=== PATIENT | male | born 1985 | race Caucasian/White ===

== ENCOUNTER 2021-06-04 00:31 | Emergency (ER) | payer MEDICAID, SELFPAY ==
[2021-06-04 00:44] VITALS: BP 136/90; PULSE 92; RESP 20; TEMP 36.9; O2SAT 95; BMI 26.6
[2021-06-04 01:15] LABS: MANUAL DIFF FLAG NO
[2021-06-04 01:21] LABS: Basophils Percent Auto 0.5 % (0-2); Eosinophils Absolute Auto 0.1 X10*3/uL (0.0-0.4); Hemoglobin 17.1 g/dl (14.0-18.0); Imm Gran Abs Auto 0.02 X10*3/uL (0.00-0.03); Imm Gran Pct Auto 0.3 % (0.0-0.4); Lymphocytes Absolute Auto 1.5 X10*3/uL (1.2-4.9); Lymphocytes Percent Auto 19.5 % (20-40); Mean Corpuscular HGB Conc 35.6 g/dl (31.0-36.0); Mean Corpuscular Hemoglobin 32.1 pg (27.0-33.0); Mean Corpuscular Volume 90.2 fL (80-98); Mean Platelet Volume 9.4 fL (9.4-12.4); Monocytes Absolute Auto 0.5 X10*3/uL (0.1-1.2); Monocytes Percent Auto 6.7 % (2-11); Neutrophils Absolute Auto 5.5 X10*3/uL (2.0-8.3); Platelet Count 323 X10*3/uL (160-400); Red Blood Count 5.32 X10*6/uL (4.60-5.80); Red Cell Distribution Width 12.6 % (11.0-16.0); White Blood Count 7.7 X10*3/uL (4.8-10.8)
[2021-06-04 01:22] LABS: Appearance Urine CLEAR; Color Urine STRAW; Glucose Urine UA NEG (NEG); Leukocyte Esterase Urine NEG (NEG); Nitrite Urine NEG (NEG); PH 5.5 (5.0-8.0); UACC Culture Trigger NO; Urine Blood 2+ (NEG); Urine Ketones NEG (NEG); Urine Protein NEG (NEG-TRACE)
[2021-06-04 01:29] LABS: Ethanol 200 mg/dL
[2021-06-04 01:30] LABS: Anion Gap 18 (12-20); Blood Urea Nitrogen 10 mg/dL (9-16); Calcium 9.4 mg/dL (8.4-10.2); Carbon Dioxide 19 mmol/L (22-29); Chloride 110 mmol/L (96-108); Estimated Glomerular Filt Rate > 60; Glucose Random 95 mg/dL (60-115); Potassium 4.1 mmol/L (3.3-5.1); Sodium 143 mmol/L (135-145)
[2021-06-04 01:31] LABS: Mucus Urine TRACE /LPF; RBC Urine 0 /HPF (0); Squamous Epithelial Cell Urine 1+ /LPF; WBC Urine 0 /HPF (0-4)
[2021-06-04 01:32] LABS: COVID-19 Test Negative (Negative)
[2021-06-04 01:38] LABS: Amphetamine Screen Urine Not Detected (Not Detect); Barbiturates, Urine Not Detected (Not Detect); Benzodiazepines Screen Urine Not Detected (Not Detect); Cannabinoid Screen Urine Not Detected (Not Detect); Cocaine Screen Urine Not Detected (Not Detect); Fentanyl, urine Not Detected (Not Detect); Opiate Screen Urine Not Detected (Not Detect); Phencyclidine Screen Urine Not Detected (Not Detect)
[2021-06-04 04:55] VITALS: RESP 20
[2021-06-04] MEDS: LORazepam 2 MG/ML VIAL IM (05:00)
[2021-06-04] MEDS: Haloperidol Lactate 5 MG/ML VIAL IM (05:00)
[2021-06-04] MEDS: diphenhydrAMINE HCL 50 MG/ML VIAL IM (05:00)
--- NOTE | 2021-06-04 05:08 | ED_ITS ---
HPI - Psych General Chief Complaint: Psychiatric Symptoms Stated Complaint: SI/section 12 Time Seen by Provider: 06/04/21 04:54 Source: RN notes reviewed Mode of arrival: EMS Limitations: other (Psychiatric issues, patient refused to talk to me) History of Present Illness HPI Narrative: 35-year-old male who was brought to the emergency department by EMS in police custody for suicidal statements that he made to the police. The patient would not give me information in the information came from ED nursing staff. Apparently the patient had a stillborn child 2 years ago and he was grieving the anniversary of this trial . The patient was drinking heavily and the family was concerned about his behavior. Apparently, the patient got aggressive with his 6-year-old child. The police for called and apparently the patient ran away from the police. The patient was eventually caught and brought to senior care in police custody. While he was in senior care he made suicidal statements and asked the police to shoot him cuts he wanted to . The patient was then placed on a Section 12 and brought to the emergency department. Initially the patient was calm and cooperative however after sleeping and waking up he went to the bathroom and insisted that he wanted to leave. The ED staff members told him that he was on a Section 12 and that he needed to be cleared by our screening service prior to being discharged. Security was contacted and they were trying to retract the patient as well. The patient then got very aggressive and attack to security control room officer pushing and backwards and was very threatening. At this point, the patient was restrained by security and by nursing staff. When I went into the room the patient was screaming, he was swearing violently, he was single out the security officers that he attack and was yelling at him aggressively and calling the security control room officer name such at he is a piece of shit . At this point I ordered Haldol 5 mg IM, Ativan 2 mg IM and Benadryl 50 mg IM. The patient will be kept in restraints until we can calm him down in order to release him from restraints. Related Data Home Medications Medication Instructions Recorded Confirmed omeprazole 20 mg capsule,delayed 1 cap PO DAILY 06/04/21 06/04/21 release Allergies Allergy/AdvReac Type Severity Reaction Status Date / Time No Known Allergies Allergy Verified 06/04/21 00:54 Review of Systems Review of Systems: Yes Unobtainable due to mental status PMFSH Past Medical History [facility] Narrative: Past medical history: Unobtainable. Past surgical history: Unobtainable. Social history: Unobtainable. Social History Social History Advance Directives: No Physical Exam Vital Signs: Vital Signs: Last Vital Signs Temp 98.4 F 06/04/21 00:44 Pulse 92 06/04/21 00:44 Resp 18 06/04/21 05:55 BP 136/90 H 06/04/21 00:44 Pulse Ox 95 06/04/21 00:44 Body Mass Index 26.6 Const: Other: Very agitated male patient, yelling at staff demanding that he be released, patient is in 4 point restraints. HENMT: Head: Yes normal to inspection and Yes normocephalic General nose exam: Normal nares present Face and sinus: Yes normal facial exam Mouth: Normal oral and palatal mucosa present Eyes: General: appearance normal, both eyes and all related structures Neck: Neck: Yes normal visual inspection Chest: Chest palpation & inspection: normal inspection of the chest Resp: Effort & Inspection: normal respiratory effort Skin: General skin exam: no rashes or lesions noted Neuro: Other: Neuro appears to be nonfocal, he moves all extremities, he is extremely agitated and violent and is in 4 point restraints Extrem: General: Yes normal to inspection Psych: Other: The patient is extremely agitated, he was extremely violent attacked a security control room officer, he continues to be verbally threatening against the security control room officer. He is in 4 point restraints and is uncooperative. The patient is fighting against the restraints and demanding to be released. Course Course Course Narrative: 35-year-old male who was grieving the anniversary of the loss of a stillborn child 2 years prior, he was drinking heavily and may have been threatening 6-year-old child that lives with him. His family was concerned about his aggressive behavior and called the police, patient ran away from the police but was eventually captured and rested. While he was in police custody made suicidal statements and was transferred to the emergency department on a Section 12. Initially the patient was intoxicated was sleeping but when he woke up he became extremely violent and aggressive attacking 1 of our security guards. The patient was placed in 4 point restraints. He was medicated with Avendano ldol 5 mg IM, Benadryl 50 mg IM and Ativan 2 mg IM. The patient will be kept in 4 point restraints until he is calm and off to be released, he may also require more sedation given his extremely aggressive and violent behavior. 0744: Start physician observation at 0744 hours. CBC and BMP were u nremarkable. Urinalysis revealed 2+ blood, microscopic revealed no RBCs. Urine tox screen was negative. Blood alcohol level was elevated at 200. The patient is out of 4 point restraints and he is resting comfortably in his bed. The patient is waiting for [facility] evaluation. The patient's examination is normal with a normal neurologic exam. Patient's care will be turned over to my colleague, Dr. Jessica Mays. [facility] - Psych Lab Data Result diagrams: 06/04/21 01:09 06/04/21 01:09 Labs: Lab Results 06/04/21 06/04/21 06/04/21 Range/Units 00:57 01:09 01:09 WBC 7.7 (4.8-10.8) X10*3/uL RBC 5.32 (4.60-5.80) X10*6/uL Hgb 17.1 (14.0-18.0) g/dl Hct 48.0 (42-52) % MCV 90.2 (80-98) fL MCH 32.1 (27.0-33.0) pg MCHC 35.6 (31.0-36.0) g/dl RDW 12.6 (11.0-16.0) % Plt Count 323 (160-400) X10*3/uL MPV 9.4 (9.4-12.4) fL Immature Gran % (Auto) 0.3 (0.0-0.4) % Neut % (Auto) 72.0 (45-73) % Lymph % (Auto) 19.5 L (20-40) % Lamb % (Auto) 6.7 (2-11) % Eos % (Auto) 1.0 (0-4) % Baso % (Auto) 0.5 (0-2) % Lymph # (Auto) 1.5 (1.2-4.9) X10*3/uL Lamb # (Auto) 0.5 (0.1-1.2) X10*3/uL Eos # (Auto) 0.1 (0.0-0.4) X10*3/uL Baso # (Auto) 0.0 (0.0-0.2) X10*3/uL Abs Immat Gran (auto) 0.02 (0.00-0.03) X10*3/uL Absolute Neuts (auto) 5.5 (2.0-8.3) X10*3/uL Absolute Nucleated RBC 0.000 (0.0-0.012) X10*3/uL Nucleated RBC % (auto) 0.0 (0.0-0.2) /100WBC Sodium (135-145) mmol/L Potassium (3.3-5.1) mmol/L Chloride (96-108) mmol/L Carbon Dioxide (22-29) mmol/L Anion Gap (12-20) BUN (9-16) mg/dL Creatinine (0.5-1.4) mg/dL Estim Creat Clear Calc Estimated GFR Random Glucose (60-115) mg/dL Calcium (8.4-10.2) mg/dL Urine Color Urine Appearance Urine pH (5.0-8.0) Ur Specific [place] (1.005-1.025) Urine Protein (NEG-TRACE) MG/DL Urine Glucose (UA) (NEG) MG/DL Urine Ketones (NEG) MG/DL Urine Blood (NEG) Urine Nitrite (NEG) Ur Leukocyte Esterase (NEG) Urine RBC (0) /HPF Urine WBC (0-4) /HPF Ur Squamous Epith Cells /LPF Urine Bacteria /LPF Urine Mucus /LPF Urine Opiates Screen (Not Detect) Urine Fentanyl Screen (Not Detect) Ur Barbiturates Screen (Not Detect) Ur Phencyclidine Scrn (Not Detect) Ur Amphetamines Screen (Not Detect) U Benzodiazepines Scrn (Not Detect) Urine Cocaine Screen (Not Detect) U Marijuana (THC) Screen (Not Detect) Ethyl Alcohol 200 mg/dL COVID-19 (MISAEL) Negative (Negative) COVID-19 Clin Com See Note 06/04/21 06/04/21 06/04/21 Range/Units 01:09 01:09 01:09 WBC (4.8-10.8) X10*3/uL RBC (4.60-5.80) X10*6/uL Hgb (14.0-18.0) g/dl Hct (42-52) % MCV (80-98) fL MCH (27.0-33.0) pg MCHC (31.0-36.0) g/dl RDW (11.0-16.0) % Plt Count (160-400) X10*3/uL MPV (9.4-12.4) fL Immature Gran % (Auto) (0.0-0.4) % Neut % (Auto) (45-73) % Lymph % (Auto) (20-40) % Lamb % (Auto) (2-11) % Eos % (Auto) (0-4) % Baso % (Auto) (0-2) % Lymph # (Auto) (1.2-4.9) X10*3/uL Lamb # (Auto) (0.1-1.2) X10*3/uL Eos # (Auto) (0.0-0.4) X10*3/uL Baso # (Auto) (0.0-0.2) X10*3/uL Abs Immat Gran (auto) (0.00-0.03) X10*3/uL Absolute Neuts (auto) (2.0-8.3) X10*3/uL Absolute Nucleated RBC (0.0-0.012) X10*3/uL Nucleated RBC % (auto) (0.0-0.2) /100WBC Sodium 143 (135-145) mmol/L Potassium 4.1 (3.3-5.1) mmol/L Chloride 110 H (96-108) mmol/L Carbon Dioxide 19 L (22-29) mmol/L Anion Gap 18 (12-20) BUN 10 (9-16) mg/dL Creatinine 1.02 (0.5-1.4) mg/dL Estim Creat Clear Calc 103.0 Estimated GFR > 60 Random Glucose 95 (60-115) mg/dL Calcium 9.4 (8.4-10.2) mg/dL Urine Color STRAW Urine Appearance CLEAR Urine pH 5.5 (5.0-8.0) Ur Specific [place] 1.010 (1.005-1.025) Urine Protein NEG (NEG-TRACE) MG/DL Urine Glucose (UA) NEG (NEG) MG/DL Urine Ketones NEG (NEG) MG/DL Urine Blood 2+ H (NEG) Urine Nitrite NEG (NEG) Ur Leukocyte Esterase NEG (NEG) Urine RBC 0 (0) /HPF Urine WBC 0 (0-4) /HPF Ur Squamous Epith Cells 1+ /LPF Urine Bacteria NONE /LPF Urine Mucus TRACE /LPF Urine Opiates Screen Not Detected (Not Detect) Urine Fentanyl Screen Not Detected (Not Detect) Ur Barbiturates Screen Not Detected (Not Detect) Ur Phencyclidine Scrn Not Detected (Not Detect) Ur Amphetamines Screen Not Detected (Not Detect) U Benzodiazepines Scrn Not Detected (Not Detect) Urine Cocaine Screen Not Detected (Not Detect) U Marijuana (THC) Screen Not Detected (Not Detect) Ethyl Alcohol mg/dL COVID-19 (MISAEL) (Negative) COVID-19 Clin Com Discharge Plan Discharge Clinical Impression: Suicidal ideation, Depression, Alcohol intoxication Prescriptions: No Action omeprazole 20 mg capsule,delayed release(DR/EC) 1 cap PO DAILY RF: 0
[2021-06-04 05:10] VITALS: RESP 22
[2021-06-04 05:25] VITALS: RESP 20
--- NOTE | 2021-06-04 05:27 | PC.NURSE ---
Patient was extremely agitated over being in ED POD, when explained the process, patient got more agitated, started shouting demanding discharge immediately, security called when security attempted to explain the process patient charged at the security personal needing immediate restraint, provider notified/ordered behavior and medication restraint order, patient through out restraint was very combative, resistant, and un-coperative. Patient received Ativan 2 mg IM, Haldol 5 mg IM, and Benadryl 50 mg IM, administered as ordered at 0500, patient is still shouting demanding to have him released from the restraint, patient was explained the release criteria, will continue to monitor.
[2021-06-04 05:45] VITALS: RESP 18
[2021-06-04 05:55] VITALS: RESP 18
--- NOTE | 2021-06-04 06:46 | PC.NURSE ---
Patient appears sleeping, respiration =/+/non-labored bilaterally, RR is 16, patient was released from restraint at 0555, per family patient has aggressive behavior, will continue to monitor.
--- NOTE | 2021-06-04 07:30 | PC.NURSE ---
patient appears to remain asleep at present, respirations are even and unlabored, patient appears in no distress
== END 2021-06-04 13:34 | disposition home or self-care (01) ==
PROVIDERS: Nurse Practitioner Family; Emergency Provider Emergency Medicine Emergency Medical Services
DX: F33.1 Major depressive disorder, recurrent, moderate (principal); R45.851 Suicidal ideations; F10.129 Alcohol abuse with intoxication, unspecified; Y90.7 Blood alcohol level of 200-239 mg/100 ml; Z20.822 Contact with and (suspected) exposure to COVID-19; Z71.41 Alcohol abuse counseling and surveillance of alcoholic; Z79.899 Other long term (current) drug therapy
CPT/HCPCS: 36415; 80048; 80307; 81001; 82077; 85025; 87635; 96372; 99284; 99285; J1200; J2060

== ENCOUNTER 2021-07-02 10:30 | Outpatient (RCR) | payer OTHER, SELFPAY ==
--- NOTE | 2021-06-18 11:31 | P.HPPSP_ITS ---
HPI Date of Service: 06/18/21 Chief Complaint: Adjustment D/o With Depressed Mood Sources of Information: patient interviewed, chart reviewed and crisis/core team assessment reviewed HPI Healthcare Proxy: No Guardianship: No Medical Problems Affecting Mental Status: No Narrative: Pt is a 35 y/o male who was referred to PHP by CARE team 06/04/21 after he presented to [facility] ED with uncharacteristic behaviors. Per CARE team assessment, pt arrived to the ED via ambulance from the [facility] with BAL 200, s/p verbal altercation with his .? Reportedly, pt and his had a dinner democrat and he drank too much. During a verbal argument with his , pt stated he was going to leave and let the air out of his tires so he could not drive. Pt then started banging on the doors in the home. Precipitating factor included the one yr anniversary of his son?s via still born on 06/03/21. Police had to place pt into protective custody and while in the station, pt made suicidal statements resulting in his transport to the ED. While in the ED, he required physical and chemical restraint after he became belligerent, screaming, swearing, verbally threatening, and pushed security system sales consultant upon being told her could not leave and was on a section 12a. He responded well to intervention and was ultimately cooperative with assessment. Per ?s collateral info, pt was not at baseline and she attributes his behavior to alcohol consumption, which is also unusual for him. Per pt and his , he does not have an alcohol use issue and pt was embarrassed by his behavior. A 51A was filed due to the incident and DCF is now involved with the family. I evaluated the pt this evening and upon interview he reports his mood is ?good.? Says his sleep and daytime energy are ?good.? He denies problematic drinking behavior and acknowledges overdoing it on 06/03/21 leading to ED visit, ?I had more wine that I usually have.? Says on a typical basis, he has a glass of wine with dinner or a beer ?over a football game.? Denies needing treatment for alcohol use disorder. He did complete an assessment with [facility] per DCF request and will complete a urine drug screen. Pt currently denies sx of dep ression and feels he has been coping with the of his son reasonably well aside from becoming inebriated during the most recent anniversary. He denies sx of PTSD. He presents as insightful about the incident of belligerence in the ED, stating he was still inebriated and ?I felt like i needed to be home taking care of my baby, I didnt want to be there.? Otherwise, he denies issues with agitati on or aggression. He reports some issues with avoidant attachments and that ?I just bottle things up.? When he was drinking, he became disinhibited and says the feelings of loss ?hit me all at once.? He does have ?feelings of sadness? from ?losing my child.? And reports immediately after the loss, ?I definitely felt a little shell shocked? and felt ?grace weird around my friends even,? ?feeling different.? However, says his family and provide good support and he feels he is ?really good at controlling my emotions.? Says it has been a ?big adjustment? 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 Says his step-daughter is ?very mature? and helpful, they get along well. He does endorse sx of anxiety and would like to participate in PHP to help him communicate his feelings better. Past Psychiatric History: -no past psych meds -Hx of obtaining therapy through [facility] in [place], [place] s/p of son by still and briefly attended couple?s therapy with , states both of these therapies helped. Medical Evaluation Reviewed: No [facility] Narrative: -Denies medical concerns Family History: Denies Social History: -Pt grew up in [place]. He is the youngest of 5 siblings. Parents when he was age 5, primarily raised by bio mom, saw dad on Sundays. -Lives with , step-daughter (age 12), son (7 mo) -Has Bachelor degree from [employer] in economics. 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 Has family supports and friend support. Substance History: Pt denies any illicit drug use. He did over drink to the point of intoxication on 06/03/21 however denies problematic drinking behavior. Trauma History: Denies Meds/Allergies Allergies Allergies Allergy/AdvReac Type Severity Reaction Status Date / Time No Known Allergies Allergy Verified 06/04/21 00:54 Mental Status Exam Mental Status Exam Narrative: A&O. Well groomed, good hygiene, normal body habitus. Good eye contact, attentive. No Tics or Tremors. No abnormal involuntary movements. Calm, cooperative, engaged. Non-pressured speech, spontaneous with regular rate and rhythm, normal volume and prosody. No prolonged speech latency or dysarthria. Mood is ?good,? affect is euthymic. Denies SI/SIB/HI upon inquiry. Denies A/VH or delusional thought content. Thoughts are coherent, organized. No known cognitive or memory impairment. Insight/ Judgment fair and adequate. Assessment & Plan Assessment & Plan (1) MOUNA (generalized anxiety disorder): Status: Acute Code(s): F41.1 - Generalized anxiety disorder Assessment and Plan: Pt is a 35 y/o male who was referred to PHP by CARE team 06/04/21 after he presented to [facility] ED with uncharacteristic behaviors. He was inebriated at the time of the ED visit, s/p verbal altercation with , belligerent in the ED. and pt report drinking behavior and aggression was very uncharacteristic, denies problematic drinking behavior. Pt reports precipitant as one year anniversary of losing son to stillbirth. DCF is now involved and pt is accepting responsibility, help seeking. He has some sx of generalized anxiety disorder but would like to try individual therapy prior to medication management. No psychotic sx reported. No hx of manic or hypomanic episodes endorsed. Plan: No medications started today. Patient seen. Chart reviewed. Discussed with team. Obtain collateral contact info?as needed Continue to engage in PHP groups Certification I certify that partial hospital treatment is medically necessary due to the symptoms and problems resulting from the patient's mental illness and the failure to treat the patient at the partial hospital level of care would likely result in the patient requiring inpatient psychiatric care which could not be prevented at a less intensive level of care.
[2021-06-18 13:15] VITALS: BMI 26.6
--- NOTE | 2021-06-18 13:16 | PC.ADMIT ---
Patient is a 35 year old male who was referred to [facility] by the CARE team. Patient reportedly got into an altercation with his while drinking ETOH and police were involved. Patient was taken into custody however expressed SI at the time and was taken by ambulance to the ER for a crisis assessment. Patient has a 7 month old son and DCF is involved and wants the client to receive treatment. Patient reports that he lost a child 2 years ago d/t a still born and he is still in the grief process. Wants to learn to control and handle his emotions properly which quickly turn to anger. Patient reports he had an outburst and was drinking. Patient appeared somewhat guarded during the assessment. 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 Patient denied issues with ETOH and reports drinking 1-2 drinks at dinner per week. Denied history of binge drinking. Patient is alert and oriented x4. Calm and cooperative. Presents with depressed mood, blunted affect. Denied SI. Wants to work on controlling his emotions and continued grief related to of his son. Patient reports he is still in the grieving process. Patient reports he is not on any medications at this time.
--- NOTE | 2021-06-25 15:38 | P.PNPSP_ITS ---
Subjective Subjective Date of Service: 06/25/21 Reason For Visit: Adjustment D/o With Depressed Mood Healthcare Proxy: No Guardianship: No Medical Problems Affecting Mental Status: No Interim History: I evaluated the pt this morning and upon inquiry he reports group has been good, felt a little sad today, as there was another member in group who was coping with loss of a child via stillbirth, brought up all the emotions. Says he has been coping and feeling better looking at his son smiling at him. Sleep has been good. Denies anxiety or distress. Says at nighttime he noticed he had a feeling in my chest of loneliness but this is also in the context of his recently changing her shifts to evening, was able to cope through the feeling. He has been participating in groups and says I think this program has been helping me with the trauma jay been through, acknowledges he has a hx of avoidant coping strategies and holding it in for his emotions. Still interested in pursuing OP therapy on discharge. Does not want med management until he tries individual OP therapy first. Mental Status Exam Mental Status Exam Narrative: A&O. Well groomed, good hygiene, normal body habitus. Good eye contact, attentive. No Tics or Tremors. No abnormal involuntary movements. Calm, cooperative, engaged. Non-pressured speech, spontaneous with regular rate and rhythm, normal volume and prosody. No prolonged speech latency or dysarthria. Mood is ?good,? affect is euthymic. Denies SI/SIB/HI upon inquiry. Denies A/VH or delusional thought content. Thoughts are coherent, organized. No known cognitive or memory impairment. Insight/ Judgment fair and adequate. Diagnostics Vital Signs (24Hr): Body Mass Index 26.6 Assessment & Plan Assessment & Plan (1) MOUNA (generalized anxiety disorder): Status: Acute Code(s): F41.1 - Generalized anxiety disorder Assessment and Plan: Pt is a 35 y/o male who was referred to PHP by CARE team 06/04/21 after he presented to [facility] ED with uncharacteristic behaviors. He was inebriated at the time of the ED visit, s/p verbal altercation with , belligerent in the ED. and pt report drinking behavior and aggression was very uncharacteristic, denies problematic drinking behavior. Pt reports precipitant as one year anniversary of losing son to stillbirth. DCF is now involved and pt is accepting responsibility, help seeking. He has some sx of generalized anxiety disorder but would like to try individual therapy prior to medication management. No psychotic sx reported. No hx of manic or hypomanic episodes endorsed. Plan: No medications started today. Will continue to engage in PHP groups. Wants to obtain individual OP therapy upon discharge. Patient seen. Chart reviewed. Discussed with team. Certification I certify that partial hospital treatment is medically necessary due to the symptoms and problems resulting from the patient's mental illness and the failure to treat the patient at the partial hospital level of care would likely result in the patient requiring inpatient psychiatric care which could not be prevented at a less intensive level of care. I spent minutes with the patient and/or on the patient floor today, greater than?50% of which was spent counseling/coordinating care. Discharge Plan Discharge Attending provider: Ermias Lorenzo Medications: No Action omeprazole 20 mg capsule,delayed release(DR/EC) 1 cap PO DAILY RF: 0
--- NOTE | 2021-07-01 15:15 | P.PNPSP_ITS ---
Subjective Subjective Date of Service: 07/01/21 Reason For Visit: Adjustment D/o With Depressed Mood Guardianship: No Medical Problems Affecting Mental Status: No Interim History: Primitivo reports feeling comfortable, and states he feels ready for discharge from [facility]. Attending Groups: Yes Review of Systems Acute medical concerns: No Medical Review of Systems: unchanged Mental Status Exam Mental Status Exam Narrative: Well-developed, well-nourished male, in no apparent distress. Alert and oriented x4. Good eye contact. No involuntary movements noted, motor activity calm, posture within normal limits. Client was calm and cooperative during interview. Speech was articulate, unimpaired, normal rate and volume. Mood and affect stable. Thought process and associations linear, goal-directed. Thought content normal, future oriented. No evidence of any type of delusions or hallucinations, and none reported. No SI, no HI. Reliability good. Cognition and memory good. Judgment and insight appear grossly intact at this time. Ambulation not observed. Diagnostics Vital Signs (24Hr): Body Mass Index 26.6 Assessment & Plan Assessment & Plan (1) MOUNA (generalized anxiety disorder): Status: Acute Code(s): F41.1 - Generalized anxiety disorder Assessment and Plan: Client reports that he is feeling stable at this time. He denies any anxiety symptoms today. 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 He states this is the 1st time he has ever had a therapist, and he looks forward to it. He denies any other concerns at this time, no safety concern. He appears stable for discharge from [facility]. Assessment and Plan: 1. Discharge from [facility] today. 2. Client will follow up with outpatient therapist. 3. Client has not been prescribed any medications for MOUNA while in [facility]. Patient educated on: diagnosis, medication risk/benefits (Client was not interested in any type of medications for anxiety disorder.) and therapeutic strategies Informed Consent: understands Reason for contiued partial hosp. stay Substantial Risk for: stable for discharge Certification I certify that partial hospital treatment is medically necessary due to the symptoms and problems resulting from the patient's mental illness and the failure to treat the patient at the partial hospital level of care would likely result in the patient requiring inpatient psychiatric care which could not be prevented at a less intensive level of care. I spent minutes with the patient and/or on the patient floor today, greater than?50% of which was spent counseling/coordinating care. Discharge Plan Discharge Attending provider: Ermias Lorenzo Medications: No Action omeprazole 20 mg capsule,delayed release(DR/EC) 1 cap PO DAILY RF: 0 Stand Alone Forms: Patient Portal Discharge page Telehealth Telehealth Location of provider rendering services: practice address Location of patient: address on file Patient Identification confirmed using: Name, : Yes Telehealth method: video Patient verbally consented to treatment: Yes Patient verbally consented to billing insurance company: Yes Patient informed of any privacy concerns related to visit: Yes Time spent with patient (mins): 15
== END 2021-07-03 07:13 | disposition home or self-care (01) ==
LOC: HO.PHPA 10:30
PROVIDERS: Visit Provider Psychiatry & Neurology Psychiatry
DX: F41.1 Generalized anxiety disorder (principal)
CPT/HCPCS: 90791; 90853

== ENCOUNTER 2023-12-29 18:12 | Emergency (ER) | payer OTHER, SELFPAY | END 2023-12-29 20:54 | disposition left against medical advice (07) | LOC: HO.ED 20:50 | PROVIDERS: Emergency Provider Emergency Medicine | DX: S99.911A Unspecified injury of right ankle, initial encounter (principal); X58.XXXA Exposure to other specified factors, initial encounter; Y93.9 Activity, unspecified; Y92.9 Unspecified place or not applicable; Y99.9 Unspecified external cause status ==